=== PATIENT | female | born 1970 | race Caucasian/White ===

== ENCOUNTER → 2019-07-03 | Outpatient (CLI) | payer OTHER ==
[~2019-07-03] MED LIST: ACET325T14 PO; IBUP200T64 PO
[2019-07-03 10:35] LABS: BASOPHILS # (AUTO) 0.05 x10^3/uL (0-0.1); BASOPHILS % (AUTO) 1 % (0-1); EOSINOPHILS # (AUTO) 0.12 x10^3/uL (0-0.4); EOSINOPHILS % (AUTO) 2 % (1-7); LYMPHOCYTES # (AUTO) 2.54 x10^3/uL (1-3.4); LYMPHOCYTES % (AUTO) 43 % (22-44); MD NO; MEAN CORPUSCULAR HEMOGLOBIN 27.5 pg (27.0-34.8); MEAN CORPUSCULAR HGB CONC 33.2 g/dL (32.4-35.8); MONOCYTES # (AUTO) 0.53 x10^3/uL (0.2-0.8); MONOCYTES % (AUTO) 9 % (2-9); NEUTROPHILS # (AUTO) 2.61 x10^3/uL (1.8-6.8); NEUTROPHILS % (AUTO) 45 % (42-75); PLATELET COUNT 270 x10^3/uL (130-400); RED BLOOD COUNT 5.55 x10^6/uL (3.82-5.3); RED CELL DISTRIBUTION WIDTH 13.4 % (9.6-15.2)
[2019-07-03 10:42] LABS: ANION GAP 5 mmol/L (5-15); CALCIUM 9.1 mg/dL (8.5-10.1); CHLORIDE 106 mmol/L (98-107); CREATININE 0.74 mg/dL (0.55-1.02)
[2019-07-03 10:43] LABS: INTERNATIONAL NORMALIZED RATIO 0.93 (0.93-1.1); PROTHROMBIN TIME 9.8 Seconds (9.6-11.5)
== END | disposition home or self-care (01) ==
LOC: STAR 09:37
PROVIDERS: ATTEND Neurological Surgery
DX: Z01.818 Encounter for other preprocedural examination (principal); M48.02 Spinal stenosis, cervical region
CPT/HCPCS: 36415; 71046; 80048; 85025; 85610; 85730; 93005

== ENCOUNTER 2019-07-26 05:41 | Day surgery (SDC) | payer OTHER ==
[~2019-07-26] VITALS: Ht 165.1 cm; Wt 90.0 kg
[2019-07-26 06:33] VITALS: BP 148/84
[2019-07-26] MEDS ORDERED: LACTATED RINGERS 1,000 ML IV SCH (06:36)
[2019-07-26] MEDS ORDERED: MIDAZOLAM 1 MG/ML, 2ML ONE (06:36)
[2019-07-26] MEDS ORDERED: FENTANYL PF 250 MCG/5ML ONE ×2 (06:37→07:51)
[2019-07-26] MEDS ORDERED: PHENYLEPHRINE 10 MG/ML ONE (06:43)
[2019-07-26] MEDS ORDERED: GLYCOPYRROLATE 0.2MG/1ML, 5ML ONE (06:46)
[2019-07-26] MEDS ORDERED: CEFAZOLIN 1,000 MG ONE (06:46)
[2019-07-26] MEDS ORDERED: PROPOFOL 10 MG/ML, 20ML ONE (06:46)
[2019-07-26] MEDS ORDERED: DEXAMETHASONE 4 MG/ML, 1ML ONE (06:46)
[2019-07-26] MEDS ORDERED: ROCURONIUM 10MG/ML,5ML ONE (06:46)
[2019-07-26] MEDS ORDERED: NEOSTIGMINE 1 MG/ML, 10ML ONE (06:46)
[2019-07-26] MEDS ORDERED: ONDANSETRON 2MG/ML, 2ML ONE (06:46)
[2019-07-26] MEDS ORDERED: METHYLENE BLUE 10 MG/ML 10ML ONE (06:54)
[2019-07-26] MEDS ORDERED: BACITRACIN 50,000 UNIT ONE (06:54)
[2019-07-26] MEDS ORDERED: BUPIVACAINE/PF-EPI 0.5% 1:200K ONE (06:54)
[2019-07-26 06:56] LABS: HCG UR SG 1.021 (1.003-1.030)
[2019-07-26] MEDS ORDERED: hydrALAzine 20 MG/ML, 1ML IV PRN (07:00)
[2019-07-26] MEDS ORDERED: GABAPENTIN 300 MG CAPSULE PO ONE (07:00)
[2019-07-26] MEDS ORDERED: DIAZEPAM 5 MG/ML, 2ML IVPush PRN (07:00)
[2019-07-26] MEDS ORDERED: HALOPERIDOL 5 MG/ML IV PRN (07:00)
[2019-07-26] MEDS ORDERED: MEPERIDINE/PF 25MG/ML,1ML IVPush PRN (07:00)
[2019-07-26] MEDS ORDERED: FENTANYL PF 100 MCG/2ML IV PRN (07:00)
[2019-07-26] MEDS ORDERED: MORPHINE SULFATE 4 MG/ML, 1ML IVPush PRN (07:00)
[2019-07-26] MEDS ORDERED: HYDROmorphone 2 MG/ML, 1ML IVPush PRN (07:00)
[2019-07-26] MEDS ORDERED: SCOPOLAMINE 1MG PATCH TD SCH (07:00)
[2019-07-26] MEDS ORDERED: LABETALOL 5MG/ML, 20ML IV PRN (07:00)
[2019-07-26] MEDS ORDERED: PROMETHAZINE 25 MG/ML, 1ML IV PRN (07:00)
[2019-07-26] MEDS ORDERED: OXYcodone 5 MG/5 ML ORAL.SOL UDC PO PRN (07:00)
[2019-07-26] MEDS ORDERED: ACETAMINOPHEN 500 MG TABLET PO ONE (07:00)
[2019-07-26] MEDS ORDERED: ALBUTEROL HFA 90 MCG/SPRAY ONE (07:33)
[2019-07-26] MEDS ORDERED: METHOCARBAMOL 1,000 MG in DEXTROSE 5% 100 ML IV STA (09:56)
== END 2019-07-26 14:20 | disposition home or self-care (01) ==
LOC: OUT 05:41
PROVIDERS: ATTEND Neurological Surgery
DX: M48.02 Spinal stenosis, cervical region (principal); M54.12 Radiculopathy, cervical region; G43.909 Migraine, unspecified, not intractable, without status migrainosus; F32.9 Major depressive disorder, single episode, unspecified; F41.9 Anxiety disorder, unspecified; F17.210 Nicotine dependence, cigarettes, uncomplicated; Z79.899 Other long term (current) drug therapy; Z88.0 Allergy status to penicillin; Z88.2 Allergy status to sulfonamides; Z91.013 Allergy to seafood; Z91.041 Radiographic dye allergy status
CPT/HCPCS: 63045; 63048; 72040; 81025; C1713; J0690; J1100; J2250; J2370; J2405; J2704; J2710; J2800; J3010; J7120; Q9968